=== PATIENT | female | born 1970 | race Caucasian/White ===

== ENCOUNTER 2019-12-27 09:59 | Day surgery (SDC) | payer OTHER ==
[2019-12-24 09:11] VITALS: BMI 25.9
[~2019-12-27 09:59] MED LIST: LACTATED RINGERS 1,000 ML IV SCH
[2019-12-27 10:21] VITALS: TEMP 97.8
[2019-12-27] MEDS ORDERED: LIDOCAINE 1% (10MG/ML) FOR IV START INTRADERMA ONE (10:23)
[2019-12-27] MEDS ORDERED: LACTATED RINGERS 1,000 ML IV ONE (10:23)
[2019-12-27] MEDS ORDERED: PROPOFOL 10 MG/ML 20 ML VIAL IV ONE (11:10)
[2019-12-27] MEDS ORDERED: LIDOCAINE 1% INJ 10MG/ML (20 ML MDV) ONE (11:10)
--- NOTE | 2019-12-27 11:47 | P.PCN ---
Date of Procedure: 12/27/19 Description of Procedure: Brief history: Patient is a pleasant 49-year-old female presenting for EGD and colonoscopy for evaluation of GERD and change in bowel habits. She reports intermittent episodes of reflux treated with [id number] Tums, approximately 3 days per week. She also reports prior cervical fusion which she feels may cause some proximal esophageal dysphagia. Patient reports 2 years of loose watery bowel movements. No prior EGD or colonoscopy. Procedure performed: Esophagogastroduodenoscopy with biopsy Colonoscopy with biopsy Estimated blood loss: Minimal. Preoperative diagnosis: GERD, change in bowel habits, diarrhea, no prior EGD or colonoscopy reported. Anesthesia: MAC Procedure: After informed consent was obtained from the patient was brought into the endoscopy unit and IV sedation was administered by anesthesia under continuous monitoring. Initially upper endoscopy was done. The Olympus GF 190 video endoscope was inserted into the mouth and esophagus intubated without any difficulty and was gradually advanced into the stomach and duodenum and care fully examined. The bulb and second part of the duodenum appeared normal, with biopsies taken to rule out celiac sprue. The scope was then withdrawn into the stomach adequately insufflated with air and upon careful examination the antrum and body, cardia and fundus appeared normal, except for some mild scattered erythema in antrum and body suggestive of mild gastritis with biopsies taken. The scope was then withdrawn into the esophagus. The GE junction was located at 36 cm to the incisors and biopsy. It appeared regular with no erythema erosions or ulcerations. Rest of the esophagus appeared normal. Patient tolerated the procedure well. At this time the patient continued to remain sedation. Initial digital rectal examination was normal. Olympus CF 190 video colonoscope was then inserted into the rectum and gradually advanced to the cecum without any difficulty. Careful examination was performed as the scope was gradually being withdrawn. The prep was poor with a large amount of liquid and solid stool throughout the colon. The cecum, ascending colon, transverse colon, descending colon, sigmoid colon and rectum appeared normal, with complete visualization of the mucosa impaired by poor prep. Random biopsies were taken of the right colon, left colon and a normal-appearing terminal ileum in the setting of altered bowel function and diarrhea.. Retroflexion was performed in the rectum and no lesions were noted. Patient tolerated the procedure well. Impression: 1. Mild gastritis, antrum and body biopsied. Biopsies of the duodenum and GE junction. 2. Poor prep, with a large amount of liquid stool with some solid components throughout the entire colon prohibiting complete visualization of the mucosa. Random biopsies were taken of the terminal ileum which appeared normal, right colon and left colon. Recommendations: Findings of this examination were discussed with the patient. Okay to resume diet. Okay to resume medications. Await pathology from biopsies. Would recommend repeat colonoscopy in 6-12 months for screening purposes given poor prep with a 2 day prep at that time.
[2019-12-27 11:52] VITALS: RESP 16
[2019-12-27 12:13] VITALS: BP 100/64; PULSE 66
== END 2019-12-27 12:29 | disposition home or self-care (01) ==
LOC: ORWHC2ENDO 09:59
PROVIDERS: ATTEND Internal Medicine
DX: K20.0 Eosinophilic esophagitis (principal); K29.50 Unspecified chronic gastritis without bleeding; R19.4 Change in bowel habit; J44.9 Chronic obstructive pulmonary disease, unspecified; Z90.710 Acquired absence of both cervix and uterus; Z90.5 Acquired absence of kidney; Z52.4 Kidney donor; Z98.890 Other specified postprocedural states; Z98.1 Arthrodesis status; I10 Essential (primary) hypertension; Z79.1 Long term (current) use of non-steroidal anti-inflammatories (NSAID); Z79.891 Long term (current) use of opiate analgesic; Z79.899 Other long term (current) drug therapy; Z88.2 Allergy status to sulfonamides
CPT/HCPCS: 88305; 45380; 43239; J2001; J2704

== ENCOUNTER → 2020-05-02 | Outpatient (CLI) | payer OTHER ==
[2020-05-03 02:51] LABS: C Reactive Protein <0.4 mg/dL (0.0-0.8); Rheumatoid Factor, Qnt <4 IU/mL (0-13)
== END | disposition home or self-care (01) ==
LOC: LABWHC1 15:27
PROVIDERS: ATTEND Internal Medicine
DX: M25.50 Pain in unspecified joint (principal)
CPT/HCPCS: 36415; 85652; 86038; 86140; 86431

== ENCOUNTER → 2020-08-31 | Outpatient (CLI) | payer OTHER ==
--- NOTE | 2020-08-31 14:15 | US ---
EXAMINATION TYPE: US thyroid st tissue head/neck DATE OF EXAM: 08/31/2020 COMPARISON: NONE CLINICAL HISTORY: R22.0 Localized swelling, mass and lump, head. Patient c/o midline palpable, and 2 years of difficulty swallowing; smoker.; family history of esophageal cancer. GLAND SIZE: Right Lobe: 4.1 x 1.3 x 1.7 cm Overall Parenchyma: homogenous Left Lobe: 3.5 x 1.1 x 1.3 cm Overall Parenchyma: homogeneous Isthmus Thickness: 0.4 cm NODULES RIGHT: # of nodules measured on right: 0 LEFT: # of nodules measured on left: 1 1. 0.3 X 0.3 x 0.2 cm, mid lateral pole, spongiform, hypoechoic nodule, which is wider than tall, w ith ill-defined margins, without echogenic foci. ISTHMUS: # of nodules measured in the isthmus: 0 Bilateral neck scanned: superior and medial to right thyroid gland a cystic area is noted = 1.2 x 1.0 x 0.7cm. No mass is noted midline mid neck at area of concern. IMPRESSION: 1. Benign-appearing subcentimeter nodule. 2. Cystlike area right upper neck 2017 ACR TI-RADS LEVEL: TR-RADS 2 - Not Suspicious: No FNA *Highest TI-RADS level nodule reported
== END | disposition home or self-care (01) ==
LOC: RADUSWWP 13:16
PROVIDERS: ATTEND Internal Medicine
DX: E04.1 Nontoxic single thyroid nodule (principal); Z80.0 Family history of malignant neoplasm of digestive organs
CPT/HCPCS: 76536

== ENCOUNTER 2022-09-16 12:09 | Emergency (ER) | payer OTHER ==
[2022-09-16] MEDS ORDERED: LIDOCAINE 1% INJ 10MG/ML (30 ML VIAL-PF) SQ ONE (12:35)
--- NOTE | 2022-09-16 12:35 | ED ---
General Adult HPI - General Chief complaint: Dental/Oral Stated complaint: dental pain Time Seen by Provider: 09/16/22 12:23 Source: patient, RN notes reviewed Mode of arrival: ambulatory Limitations: no limitations - History of Present Illness Initial comments: 52-year-old female with no significant past medical history presents to the emergency department with a chief complaint of dental pain. Patient reports worsening dental pain times the last week. She is unsure of the last time she saw a dentist. She denies any fevers, chills, fatigue. She has not taken anything for his symptoms. She denies any recent trauma or injury. - Related Data Home Medications Medication Instructions Recorded Confirmed Acyclovir [Zovirax] 400 mg PO DAILY 12/24/19 12/24/19 Albuterol Sulfate [Ventolin HFA] 1 - 2 puff INHALATION Q6H PRN 12/24/19 12/24/19 HYDROcodone/APAP 5-325MG [[place] 1 tab PO Q6H PRN 12/24/19 12/24/19 5-325] Meloxicam 15 mg PO DAILY 12/24/19 12/24/19 Venlafaxine HCl [Effexor XR] 75 mg PO QAM 12/24/19 12/24/19 amLODIPine [Norvasc] 5 mg PO QAM 12/24/19 12/24/19 tiZANidine HCL 4 mg PO BID PRN 12/24/19 12/24/19 Previous Rx's Medication Instructions Recorded Amoxic-Pot Clav 875-125Mg 1 tab PO Q12HR #20 tab 09/16/22 [Augmentin 875-125] Allergies Allergy/AdvReac Type Severity Reaction Status Date / Time sulfamethoxazole Allergy Rash/Hives Verified 09/16/22 12:17 [From Bactrim] trimethoprim [From Bactrim] Allergy Rash/Hives Verified 09/16/22 12:17 Review of Systems ROS Statement: Those systems with pertinent positive or pertinent negative responses have been documented in the HPI. ROS Other: All systems not noted in ROS Statement are negative. 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 Past Psychological History: No Psychological Hx Reported Smoking Status: Current every day smoker Past Alcohol Use History: None Reported Past Drug Use History: Marijuana - Past Family History Mother Family Medical History: Renal Disease Additional Family Medical History / Comment(s): Bright's Disease-had kidney transplant, at age 55. maternal grandmother-brain tumor Father Family Medical History: COPD Brother(s) Family Medical History: Hypertension Additional Family Medical History / Comment(s): diverticulitis General Exam Limitations: no limitations General appearance: alert, in no apparent distress Head exam: Present: atraumatic, normocephalic, normal inspection Eye exam: Present: normal appearance, PERRL, EOMI. Absent: scleral icterus, conjunctival injection, periorbital swelling ENT exam: Present: normal exam, mucous membranes moist Expanded Mouth exam: Present: normal external inspection, tongue normal. Absent: drooling, muffled voice Teeth exam: Present: dental caries, fractured tooth # (Significant deacy and dental caries to tooth 31, with abscess to the medial side of the tooth) Neck exam: Present: normal inspection. Absent: tenderness, meningismus, lymphadenopathy Respiratory exam: Present: normal lung sounds bilaterally. Absent: respiratory distress, wheezes, rales, rhonchi, stridor Cardiovascular Exam: Present: regular rate, normal rhythm, normal heart sounds. Absent: systolic murmur, diastolic murmur, rubs, gallop, clicks GI/Abdominal exam: Present: soft, normal bowel sounds. Absent: distended, tenderness, guarding, rebound, rigid Extremities exam: Present: normal inspection, full ROM, normal capillary refill. Absent: tenderness, pedal edema, joint swelling, calf tenderness Back exam: Present: normal inspection Neurological exam: Present: alert, oriented X3, CN II-XII intact Psychiatric exam: Present: normal affect, normal mood Skin exam: Present: warm, dry, intact, normal color. Absent: rash Course Vital Signs 09/16/22 09/16/22 12:15 14:17 Temperature 97.9 F 97.3 F L Pulse Rate 59 L 78 Respiratory 20 16 Rate Blood Pressure 144/89 O2 Sat by Pulse 99 94 L Oximetry Procedures - Incision & Drainage Consent Obtained: verbal consent Site: oral Size (cm): 1 Anesthetic Used: lidocaine 1% Scalpel Used: #11 Needle Aspiration Performed?: Yes Irrigation Performed?: Yes I&D Drainage Obtained: Pus, Blood Culture Obtained?: No Complications: pain, bleeding, nerve injury, allergic reaction Patient Tolerated Procedure: well, no complications Medical Decision Making - Medical Decision Making Was pt. sent in by a medical professional or institution (, PA, SILVERWARE WASHER, urgent care, hospital, or alf...) When possible be specific @ -[No] Did you speak to anyone other than the patient for history (EMS, parent, family, police, friend...)? What history was obtained from this source @ -[No] Did you review nursing and triage notes (agree or disagree)? Why? @ -[I reviewed and agree with nursing and triage notes] Were old charts reviewed (outside hosp., previous admission, EMS record, old EKG, old radiological studies, urgent care reports/EKG's, alf records)? Report findings @ -[No old charts were reviewed] Differential Diagnosis (chest pain, altered mental status, abdominal pain women, abdominal pain men, vaginal bleeding, weakness, fever, dyspnea, syncope, headache, dizziness, GI bleed, back pain, seizure, CVA, palpatations, mental health, musculoskeletal)? @ -[not applicable] EKG interpreted by me (3pts min.). @ -[As above] X-rays interpreted by me (1pt min.). @ -[None done] CT interpreted by me (1pt min.). @ -[None done] U/S interpreted by me (1pt. min.). @ -[None done] What testing was considered but not performed or refused? (CT, X-rays, U/S, labs)? Why? @ -[None] What meds were considered but not given or refused? Why? @ -[None] Did you discuss the management of the patient with other professionals (professionals i.e. Dr., PA, SILVERWARE WASHER, lab, RT, psych nurse, social work job titles, business law professor, teacher, community chest officer, heel caser)? Give summary @ -[No] Was smoking cessation discussed for >3mins.? @ -[No] Was critical care preformed (if so, how long)? @ -[No] Were there social determinants of health that impacted care today? How? (Homelessness, low income, unemployed, alcoholism, drug addiction, transportation, low edu. Level, literacy, decrease access to med. care, intermediate, rehab)? @ -[No] Was there de-escalation of care discussed even if they declined (Discuss DNR or withdrawal of care, Hospice)? DNR status @ -[No] What co-morbidities impacted this encounter? (DM, HTN, Smoking, COPD, CAD, Cancer, CVA, ARF, Chemo, Hep., AIDS, mental health diagnosis, sleep apnea, morbid obesity)? @ -[None] Was patient admitted / discharged? Hospital course, mention meds given and route, prescriptions, significant lab abnormalities, going to OR and other pertinent info. @ -Discharged. This is a 52-year-old female who presents the emergency department dental pain. Patient had history and physical exam performed on the ED heart rate regular rate and, lungs clear to auscultation bilaterally abdomen is soft and nontender. There is a dental abscess to tooth 31. Patient had an incision and drainage procedure for which she tolerated well. She was given Augmentin. She was instructed to follow up with her dentist within 1-2 days. Return precautions were discussed. Patient discharged in stable condition. Case discussed with Dr. Oh, who agrees with plan of care Undiagnosed new problem with uncertain prognosis? @ -[No] Drug Therapy requiring intensive monitoring for toxicity (Heparin, Nitro, Insulin, Cardizem)? @ -[No] Were any procedures done? @ -[No] Diagnosis/symptom? @ -dental abscess Acute, or Chronic, or Acute on Chronic? @ -acute Uncomplicated (without systemic symptoms) or Complicated (systemic symptoms)? @ -uncomplicated Side effects of treatment? @ -[No] Exacerbation, Progression, or Severe Exacerbation? @ -[No] Poses a threat to life or bodily function? How? (Chest pain, [place], [place], pneumonia, PE, COPD, DKA, ARF, appy, cholecystitis, CVA, Diverticulitis, Homicidal, Suicidal, threat to staff... and all critical care pts) @ -low likelihood Disposition Clinical Impression: Dental abscess, Dental caries Disposition: HOME SELF-CARE Condition: Stable Instructions (If sedation given, give patient instructions): Dental Abscess (ED), Toothache (ED) Additional Instructions: Follow-up with your dentist as soon as possible Please return to the nearest emergency department if fever, chills, worsening abscess develops Prescriptions: Amoxic-Pot Clav 875-125Mg [Augmentin 875-125] 1 tab PO Q12HR #20 tab Is patient prescribed a controlled substance at d/c from ED?: No Referrals: Cinthia Baum DO [Primary Care Provider] - 1-2 days Time of Disposition: 13:09
[2022-09-16] MEDS ORDERED: AMOXIC-POT CLAV 875-125MG 1 EACH TAB PO STA (13:06)
[2022-09-16] MEDS ORDERED: ONDANSETRON 4 MG ODT STARTER PACK 2 TAB BTL PO STA (13:08)
[2022-09-16 14:18] VITALS: BP 144/89; PULSE 78; RESP 16; TEMP 97.3
== END 2022-09-16 14:18 | disposition home or self-care (01) ==
LOC: EC 12:09
DX: K04.7 Periapical abscess without sinus (principal); K02.9 Dental caries, unspecified; J44.9 Chronic obstructive pulmonary disease, unspecified; I10 Essential (primary) hypertension; M19.90 Unspecified osteoarthritis, unspecified site; F17.200 Nicotine dependence, unspecified, uncomplicated; F12.90 Cannabis use, unspecified, uncomplicated; Z88.2 Allergy status to sulfonamides; Z88.8 Allergy status to other drugs, medicaments and biological substances; Z79.899 Other long term (current) drug therapy
CPT/HCPCS: 99282; 41800; J2001; S0119

== ENCOUNTER 2022-09-18 08:29 | Emergency (ER) | payer OTHER ==
[2022-09-18 08:37] VITALS: BP 133/65; PULSE 62; RESP 18; TEMP 99.1
[2022-09-18] MEDS ORDERED: HYDROmorphone 1 MG/ML 1 ML SYRINGE IM STA (08:42)
[2022-09-18] MEDS ORDERED: PENICILLIN G BENZATHINE 1,200,000 UNIT/2 ML SYRINGE IM STA (08:42)
[2022-09-18] MEDS ORDERED: ACET/COD 300 MG/30 MG STARTER PACK 6 TAB BTL PO STA (08:48)
--- NOTE | 2022-09-18 08:49 | ED ---
General Adult HPI - General Chief complaint: Dental/Oral Stated complaint: dental pain, facial swelling Time Seen by Provider: 09/18/22 08:30 Source: patient, EMS, RN notes reviewed Mode of arrival: EMS Limitations: no limitations - History of Present Illness Initial comments: Patient is a pleasant 52-year-old female presenting to the emergency department dental pain. Onset of symptoms was several days ago. Patient did have a dental extraction done just several days ago. Patient developed pain and swelling and was seen emergency department 2 days ago. Patient was started on antibiotics, less than 48 hours ago. Patient has been taking these. Patient is having some increased pain and swelling or no fever. Patient has had some chills. - Related Data Home Medications Medication Instructions Recorded Confirmed Acyclovir [Zovirax] 400 mg PO DAILY 12/24/19 12/24/19 Albuterol Sulfate [Ventolin HFA] 1 - 2 puff INHALATION Q6H PRN 12/24/19 12/24/19 HYDROcodone/APAP 5-325MG [[place] 1 tab PO Q6H PRN 12/24/19 12/24/19 5-325] Meloxicam 15 mg PO DAILY 12/24/19 12/24/19 Venlafaxine HCl [Effexor XR] 75 mg PO QAM 12/24/19 12/24/19 amLODIPine [Norvasc] 5 mg PO QAM 12/24/19 12/24/19 tiZANidine HCL 4 mg PO BID PRN 12/24/19 12/24/19 Previous Rx's Medication Instructions Recorded Amoxic-Pot Clav 875-125Mg 1 tab PO Q12HR #20 tab 09/16/22 [Augmentin 875-125] Allergies Allergy/AdvReac Type Severity Reaction Status Date / Time sulfamethoxazole Allergy Rash/Hives Verified 09/18/22 08:37 [From Bactrim] trimethoprim [From Bactrim] Allergy Rash/Hives Verified 09/18/22 08:37 Review of Systems ROS Statement: Those systems with pertinent positive or pertinent negative responses have been documented in the HPI. ROS Other: All systems not noted in ROS Statement are negative. 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 Past Psychological History: No Psychological Hx Reported Smoking Status: Current every day smoker Past Alcohol Use History: None Reported Past Drug Use History: Marijuana - Past Family History Mother Family Medical History: Renal Disease Additional Family Medical History / Comment(s): Bright's Disease-had kidney transplant, at age 55. maternal grandmother-brain tumor Father Family Medical History: COPD Brother(s) Family Medical History: Hypertension Additional Family Medical History / Comment(s): diverticulitis General Exam Limitations: no limitations General appearance: alert, in no apparent distress Head exam: Present: normocephalic Eye exam: Present: normal appearance ENT exam: Present: other (Right mandibular swelling, moderate. Soft. No definitive abscess. Oral cavity without definitive abscess. There is evidence of recent dental extraction right lower premolar without visualized abscess) Neck exam: Present: normal inspection Respiratory exam: Present: normal lung sounds bilaterally. Absent: respiratory distress Cardiovascular Exam: Present: regular rate, normal rhythm GI/Abdominal exam: Present: soft. Absent: tenderness Extremities exam: Present: normal inspection Neurological exam: Present: alert Psychiatric exam: Present: normal affect, normal mood Skin exam: Present: normal color Course Vital Signs 09/18/22 08:30 Temperature 99.1 F Pulse Rate 62 Respiratory 18 Rate Blood Pressure 133/65 O2 Sat by Pulse 97 Oximetry Medical Decision Making - Medical Decision Making Was pt. sent in by a medical professional or institution (KATHLEEN Rice, MACHINE DESIGN ENGINEER, urgent care, hospital, or [place] health care facility...) When possible be specific @ -No Did you speak to anyone other than the patient for history (EMS, parent, family, police, friend...)? What history was obtained from this source @ -No Did you review nursing and triage notes (agree or disagree)? Why? @ -I reviewed and agree with nursing and triage notes Were old charts reviewed (outside hosp., previous admission, EMS record, old EKG, old radiological studies, urgent care reports/EKG's, [place] health [facility] facility records)? Report findings @ -No old charts were reviewed Differential Diagnosis (chest pain, altered mental status, abdominal pain women, abdominal pain men, vaginal bleeding, weakness, fever, dyspnea, syncope, headache, dizziness, GI bleed, back pain, seizure, CVA, palpatations, mental health)? @ -not applicable EKG interpreted by me (3pts min.). @ -As above X-rays interpreted by me (1pt min.). @ -None done CT interpreted by me (1pt min.). @ -None done U/S interpreted by me (1pt. min.). @ -None done What testing was considered but not performed or refused? (CT, X-rays, U/S, labs)? Why? @ -Considered imaging however area is soft without clinical concern for abscess. No there is swelling, likely phlegmon. No visualized abscess in the mouth either. Nothing is able to be drained at this time. What meds were considered but not given or refused? Why? @ -None Did you discuss the management of the patient with other professionals (professionals i.e. KATHLEEN Rice, MACHINE DESIGN ENGINEER, lab, RT, psych nurse, social work faculty member, clinical admissions manager, teacher, chairman president and chief executive officer, rehabilitation caseworker)? Give summary @ -No Was smoking cessation discussed for >3mins.? @ -No Was critical care preformed (if so, how long)? @ -No Were there social determinants of health that impacted care today? How? (Homelessness, low income, unemployed, alcoholism, drug addiction, transportation, low edu. Level, literacy, decrease access to med. care, shelter, rehab)? @ -No Was there de-escalation of care discussed even if they declined (Discuss DNR or withdrawal of care, Hospice)? DNR status @ -No What co-morbidities impacted this encounter? (DM, HTN, Smoking, COPD, CAD, Cancer, CVA, ARF, Chemo, Hep., AIDS, mental health diagnosis, sleep apnea, morbid obesity)? @ -None Was patient admitted / discharged? Hospital course, mention meds given and route, prescriptions, significant lab abnormalities, going to OR and other pertinent info. @ -Patient has had less than 48 hours of antibiotics. Patient will receive IM antibiotics and pain control and recommended close follow-up. Patient is recommended follow-up with her dentist and primary care physician within 24 hours and to return if symptoms worsen Undiagnosed new problem with uncertain prognosis? @ -No Drug Therapy requiring intensive monitoring for toxicity (Heparin, Nitro, Insulin, Cardizem)? @ -No Were any procedures done? @ -No Diagnosis/symptom? @ -Dental infection Acute, or Chronic, or Acute on Chronic? @ -Acute Uncomplicated (without systemic symptoms) or Complicated (systemic symptoms)? @ -default Side effects of treatment? @ -No Exacerbation, Progression, or Severe Exacerbation? @ -No Poses a threat to life or bodily function? How? (Chest pain, [place], [place], pneumonia, PE, COPD, DKA, ARF, appy, cholecystitis, CVA, Diverticulitis, Homicidal, Suicidal, threat to staff... and all critical care pts) @ -No Disposition Clinical Impression: Dental infection Disposition: HOME SELF-CARE Condition: Stable Instructions (If sedation given, give patient instructions): Dental Abscess (ED), Toothache (ED) Additional Instructions: Please continue antibiotics. Please do follow-up with your dentist and primary care physician within the next 24 hours. Return for fevers, increased pain, increased swelling, redness, worsening or changing symptoms or any other concerns. If symptoms worsen you may need IV antibiotics and admission. Is patient prescribed a controlled substance at d/c from ED?: No Referrals: Cinthia Baum DO [Primary Care Provider] - 1-2 days Time of Disposition: 08:48
== END 2022-09-18 09:55 | disposition home or self-care (01) ==
LOC: EC 08:29
DX: K04.7 Periapical abscess without sinus (principal); J44.9 Chronic obstructive pulmonary disease, unspecified; I10 Essential (primary) hypertension; M19.90 Unspecified osteoarthritis, unspecified site; F17.200 Nicotine dependence, unspecified, uncomplicated; F12.90 Cannabis use, unspecified, uncomplicated; Z79.899 Other long term (current) drug therapy; Z79.1 Long term (current) use of non-steroidal anti-inflammatories (NSAID); Z88.2 Allergy status to sulfonamides
CPT/HCPCS: 99284; 96372 ×2; J0561; J1170

== ENCOUNTER 2023-12-31 15:30 | Observation (INO) | payer OTHER ==
--- NOTE | 2023-12-31 16:06 | ED ---
Chest Pain HPI - General Chief Complaint: Chest Pain Stated Complaint: chest pain Time Seen by Provider: 12/31/23 15:38 Source: patient, EMS Mode of arrival: EMS - History of Present Illness Initial Comments: 53-year-old female with past medical history of asthma, COPD who presents emergency department reporting chest pain. Patient was at a [facility] appointment when she began having chest pain. She states that she has had intermittent episodes of chest pain for the past year but has not been evaluated for it. She describes it as a sharp shooting pain which starts in her left chest and radiates to her left shoulder. She describes it as a pressure sensation. Admits to shortness of breath. Admits to pain with palpation. Patient was sent to the hospital from [facility] facility. She admits to previous [place]. She follows with cardiology. Denies stents. No other alleviating, precipitating or modifying factors - Related Data Home Medications Medication Instructions Recorded Confirmed Albuterol Sulfate [Ventolin HFA] 2 puff INHALATION RT-Q4H PRN 12/24/19 12/31/23 Venlafaxine HCl [Effexor XR] 150 mg PO DAILY 12/24/19 12/31/23 amLODIPine [Norvasc] 5 mg PO DAILY 12/24/19 12/31/23 Butalb/Acetaminophen/Caffeine 1 tab PO BID PRN 12/31/23 12/31/23 [Esgic 50-325-40 mg Tablet] Ergocalciferol (Vitamin D2) 1,250 mcg PO SA 12/31/23 12/31/23 [Drisdol (50,000 Iu)] Fluticasone/Umeclidin/Vilanter 1 puff INHALATION RT-DAILY 12/31/23 12/31/23 [Trelegy Ellipta 100-62.5-25] Gabapentin [Neurontin] 100 mg PO BID 12/31/23 12/31/23 Ziprasidone [Geodon] 20 mg PO BID 12/31/23 12/31/23 hydrOXYzine HCL [Atarax] 50 - 100 mg PO HS PRN 12/31/23 12/31/23 oxyCODONE-APAP 7.5-325MG [Percocet 1 tab PO BID PRN 12/31/23 12/31/23 7.5-325 mg] traZODone HCL [Desyrel] 100 mg PO HS 12/31/23 12/31/23 Previous Rx's Medication Instructions Recorded Acetaminophen Tab [Tylenol] 650 mg PO Q6HR PRN tab 01/02/24 Metoprolol Succinate [Metoprolol 25 mg PO DAILY #90 tab 01/02/24 Succinate ER] Allergies Allergy/AdvReac Type Severity Reaction Status Date / Time sulfamethoxazole Allergy Diarrhea, Verified 12/31/23 16:21 [From Bactrim] rash/hives trimethoprim [From Bactrim] Allergy Diarrhea, Verified 12/31/23 16:21 rash/hives Review of Systems ROS Statement: Those systems with pertinent positive or pertinent negative responses have been documented in the HPI. ROS Other: All systems not noted in ROS Statement are negative. 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 Past Psychological History: No Psychological Hx Reported Smoking Status: Current every day smoker Past Alcohol Use History: None Reported Past Drug Use History: Marijuana - Past Family History Mother Family Medical History: Renal Disease Additional Family Medical History / Comment(s): Bright's Disease-had kidney transplant, at age 55. maternal grandmother-brain tumor Father Family Medical History: COPD Brother(s) Family Medical History: Hypertension Additional Family Medical History / Comment(s): diverticulitis General Exam General appearance: alert, in no apparent distress Head exam: Present: atraumatic, normocephalic, normal inspection Eye exam: Present: normal appearance, PERRL, EOMI. Absent: scleral icterus, conjunctival injection, periorbital swelling ENT exam: Present: normal exam, mucous membranes moist Neck exam: Present: normal inspection. Absent: tenderness, meningismus, lymphadenopathy Respiratory exam: Present: normal lung sounds bilaterally, chest wall tenderness (To palpation of the left chest wall). Absent: respiratory distress, wheezes, rales, rhonchi, stridor Cardiovascular Exam: Present: regular rate, normal rhythm, normal heart sounds. Absent: systolic murmur, diastolic murmur, rubs, gallop, clicks GI/Abdominal exam: Present: soft, normal bowel sounds. Absent: distended, tenderness, guarding, rebound, rigid Extremities exam: Present: normal inspection, full ROM, normal capillary refill. Absent: tenderness, pedal edema, joint swelling, calf tenderness Back exam: Present: normal inspection Neurological exam: Present: alert, oriented X3, CN II-XII intact Psychiatric exam: Present: normal affect, normal mood Skin exam: Present: warm, dry, intact, normal color. Absent: rash Course Vital Signs 12/31/23 12/31/23 12/31/23 15:38 19:30 21:03 Temperature 98.2 F Pulse Rate 62 62 75 Respiratory 20 16 18 Rate Blood Pressure 133/92 129/77 112/79 O2 Sat by Pulse 96 96 97 Oximetry 12/31/23 12/31/23 01/01/24 22:00 23:00 00:00 Temperature Pulse Rate 63 60 59 L Respiratory 16 16 17 Rate Blood Pressure 120/86 112/81 119/80 O2 Sat by Pulse 95 95 95 Oximetry 01/01/24 01/01/24 01/01/24 01:00 02:00 04:00 Temperature Pulse Rate 58 L 68 61 Respiratory 18 17 18 Rate Blood Pressure 118/75 105/72 114/80 O2 Sat by Pulse 95 95 95 Oximetry 01/01/24 06:00 Temperature Pulse Rate 58 L Respiratory 16 Rate Blood Pressure 124/83 O2 Sat by Pulse 95 Oximetry Chest Pain MDM - MDM Was pt. sent in by a medical professional or institution (, PA, RENAL NURSE, urgent care, hospital, or long-term...) When possible be specific @ -Patient sent in from [facility] Did you speak to anyone other than the patient for history (EMS, parent, family, police, friend...)? What history was obtained from this source @ -Spoke with EMS for history Did you review nursing and triage notes (agree or disagree)? Why? @ -I reviewed and agree with nursing and triage notes Were old charts reviewed (outside hosp., previous admission, EMS record, old EKG, old radiological studies, urgent care reports/EKG's, long-term records)? Report findings @ -No old charts were reviewed Differential Diagnosis (chest pain, altered mental status, abdominal pain women, abdominal pain men, vaginal bleeding, weakness, fever, dyspnea, syncope, headache, dizziness, GI bleed, back pain, seizure, CVA, palpatations, mental health, musculoskeletal)? @ -Differential Chest Pain: Stable Angina, Unstable Angina, STEMI, NSTEMI Aortic Dissection, Pneumothorax, Musculoskeletal, Esophageal Spasm GERD, Cholecystitis, Pancreatitis, Zoster, this is not meant to be an all-inclusive list. EKG interpreted by me (3pts min.). @ - First EKG completed at 1553 demonstrates sinus bradycardia with a rate of 53. KS interval 121. QRS 114. QTc of 402. Intraventricular conduction delay with Q waves in V1V2. Biphasic T wave in V1 Second EKG at 1557 continues to demonstrate sinus bradycardia with a rate of 58. KS interval 123. QRS 98. QTc of 405. Intraventricular conduction delay. X-rays interpreted by me (1pt min.). @ -Yes and demonstrates no acute process CT interpreted by me (1pt min.). @ -None done U/S interpreted by me (1pt. min.). @ -None done What testing was considered but not performed or refused? (CT, X-rays, U/S, labs)? Why? @ -None What meds were considered but not given or refused? Why? @ -None Did you discuss the management of the patient with other professionals (professionals i.e. , PA, RENAL NURSE, lab, RT, psych nurse, social security assessor, drywall finisher foreman, teacher, business practices officer, case checker)? Give summary @ -Spoke with Dr. Dukes to discuss patient's EKG. Also spoke with Dr. Yousif who accepted admission Was smoking cessation discussed for >3mins.? @ -No Was critical care preformed (if so, how long)? @ -No Were there social determinants of health that impacted care today? How? (Homelessness, low income, unemployed, alcoholism, drug addiction, transportation, low edu. Level, literacy, decrease access to med. care, half-way, rehab)? @ -No Was there de-escalation of care discussed even if they declined (Discuss DNR or withdrawal of care, Hospice)? DNR status @ -No What co-morbidities impacted this encounter? (DM, HTN, Smoking, COPD, CAD, Cancer, CVA, ARF, Chemo, Hep., AIDS, mental health diagnosis, sleep apnea, morbid obesity)? @ -COPD, hypertension Was patient admitted / discharged? Hospital course, mention meds given and route, prescriptions, significant lab abnormalities, going to OR and other pertinent info. @ -Upon arrival patient seen and evaluated in room 18. Thorough history and physical exam was performed. Twelve-lead EKG is completed which does demonstrate some concerning findings. IV access is established. Laboratory studies are conducted. I did discuss the patient's care with Dr. Dukes. Upon return the results they are discussed the patient. I do feel that she should be admitted for formal cardiology consultation. Patient was agreeable to this. Spoke with Dr. Yousif who will admit patient Undiagnosed new problem with uncertain prognosis? @ -Yes Drug Therapy requiring intensive monitoring for toxicity (Heparin, Nitro, I nsulin, Cardizem)? @ -No Were any procedures done? @ -No Diagnosis/symptom? @ -Acute chest pain, abnormal EKG Acute, or Chronic, or Acute on Chronic? @ -Acute Uncomplicated (without systemic symptoms) or Complicated (systemic symptoms)? @ -Complicated Side effects of treatment? @ -No Exacerbation, Progression, or Severe Exacerbation? @ -No Poses a threat to life or bodily function? How? (Chest pain, [place], [place], pneumonia, PE, COPD, DKA, ARF, appy, cholecystitis, CVA, Diverticulitis, Homicidal, Suicidal, threat to staff... and all critical care pts) @ -Yes as patient does have chest pain in the setting of an abnormal EKG Disposition Clinical Impression: Chest pain, Abnormal EKG Disposition: ADMITTED IP TO THIS [facility] Condition: Stable Is patient prescribed a controlled substance at d/c from ED?: No Time of Disposition: 18:39 Decision to Admit Reason: Admit from EC Decision Date: 12/31/23 Decision Time: 18:39
[2023-12-31 16:52] LABS: Basophils % (A) 1 %; Eosinophils # (A) 0.2 k/uL (0-0.7); Eosinophils % (A) 2 %; HCT 45.3 % (34.0-46.0); Lymphocytes # (A) 2.9 k/uL (1.0-4.8); Lymphocytes % (A) 37 %; MCH 29.9 pg (25.0-35.0); MCHC 33.1 g/dL (31.0-37.0); MCV 90.6 fL (80.0-100.0); Mean Platelet Volume 7.5; Monocytes # (A) 0.5 k/uL (0-1.0); Monocytes % (A) 6 %; Neutrophils # (A) 4.1 k/uL (1.3-7.7); Neutrophils % (A) 52 %; Platelet Count 306 k/uL (150-450); RDW 13.5 % (11.5-15.5); WBC 7.9 k/uL (3.8-10.6)
--- NOTE | 2023-12-31 17:01 | XR ---
EXAMINATION TYPE: XR chest 2V DATE OF EXAM: 12/31/2023 4:56 PM CLINICAL INDICATION:Female, 53 years old with history of Chest Pain; [facility] COMPARISON: None TECHNIQUE: XR chest 2V Frontal view of the chest. FINDINGS: Lungs/Pleura: There is no evidence of pleural effusion, focal consolidation, or pneumothorax. Pulmonary vascularity: Unremarkable. Heart/mediastinum: Cardiomediastinal silhouette is unremarkable. Musculoskeletal: No acute osseous pathology. IMPRESSION: No acute cardiopulmonary disease/process.
[2023-12-31 17:02] LABS: Partial Thromboplastin Time 27.1 sec (22.0-30.0); Prothrombin Time 10.7 sec (10.0-12.5)
[2023-12-31 17:11] LABS: ALT 16 U/L (4-34); AST 29 U/L (14-36); African American GFR (CKD) 65 (>60 ml/min/1.73 sqM); Albumin 4.7 g/dL (3.5-5.0); Alkaline Phosphatase 78 U/L (38-126); Anion Gap 7 mmol/L; Blood Urea Nitrogen 13 mg/dL (7-17); Calcium 10.2 mg/dL (8.4-10.2); Carbon Dioxide 26 mmol/L (22-30); Chloride 106 mmol/L (98-107); Glucose 84 mg/dL (74-99); Lipase 120 U/L (23-300); Magnesium 1.9 mg/dL (1.6-2.3); Non-African American GFR(CKD) 57 (>60 ml/min/1.73 sqM); Potassium 4.5 mmol/L (3.5-5.1); Sodium 139 mmol/L (137-145); Total Bilirubin 0.6 mg/dL (0.2-1.3); Total Protein 7.7 g/dL (6.3-8.2)
[2023-12-31] MEDS ORDERED: NALOXONE 0.4 MG/ML 1 ML VIAL IV PRN (18:39)
[2023-12-31] MEDS: ASPIRIN 81 MG PO STA (18:56)
[2023-12-31] MEDS ORDERED: BUTALB/APAP/CAFF 50-325-40MG TAB PO PRN (20:09)
[2023-12-31] MEDS ORDERED: ALBUTEROL NEBULIZED 2.5 MG/3 ML INHALATION PRN (20:09)
[2023-12-31] MEDS ORDERED: hydrOXYzine HCL 25 MG TAB PO PRN (20:09)
[2023-12-31] MEDS: ZIPRASIDONE 20 MG CAP PO SCH (21:04)
[2023-12-31] MEDS: GABAPENTIN 100 MG CAP PO SCH (21:04)
[2023-12-31] MEDS: oxyCODONE-APAP 7.5-325MG 1 EACH TAB PO PRN (21:04)
[2023-12-31] MEDS: ENOXAPARIN 40 MG/0.4 ML SYRINGE SQ SCH (23:05)
[2024-01-01] MEDS: traZODone HCL 100 MG TAB PO SCH (00:05)
[2024-01-01] MEDS: amLODIPine 5 MG TAB PO SCH (09:20)
[2024-01-01] MEDS: SYMBICORT 80-4.5 MCG INHALER INHALATION SCH (09:38)
[2024-01-01] MEDS: IPRATROPIUM 0.5 MG/2.5 ML NEBU INHALATION SCH (09:39)
[2024-01-01] MEDS: IV FLUID CONTINUATION 450 ML IV ONE (09:52)
[2024-01-01 10:43] LABS: Basophils # (A) 0.07 X 10*3/uL (0.00-0.10); Basophils % (A) 1.3 %; Eosinophils # (A) 0.16 X 10*3/uL (0.04-0.35); HCT 44.8 % (37.2-46.3); HGB 14.7 g/dL (12.0-15.0); Lymphocytes % (A) 51.4 %; MCH 29.9 pg (27.0-32.0); MCHC 32.8 g/dL (32.0-37.0); MCV 91.1 FL (80.0-97.0); Mean Platelet Volume 10.5 FL (9.5-12.2); Monocytes # (A) 0.38 X 10*3/uL (0.20-1.00); Monocytes % (A) 7.2 %; NRBC Per 100 WBC 0 X 10*3/uL (0.00-0.01); Neutrophils # (A) 1.93 X 10*3/uL (1.80-7.70); Neutrophils % (A) 36.9 %; Platelet Count 270 X 10*3/uL (140-440); RBC 4.92 X 10*6/uL (4.10-5.20); RDW 13.6 % (11.5-14.5); WBC 5.25 X 10*3/uL (4.50-10.00)
[2024-01-01] MEDS: VENLAFAXINE HCL ER 150 MG CAP PO SCH (11:02)
--- NOTE | 2024-01-01 11:54 | P.CRDCN ---
History of Present Illness History of present illness: This is Dr. Anne dictating a consult on this patient The patient was interviewed and examined IMPRESSION / ASSESSMENT: Recurrent palpitations associate with dizziness and sometimes nausea and a feeling of presyncope, recurrent episodes several times a week for the last 1 year QRS fractionation lead V1 Short ID interval of less than 120 ms without clear-cut delta waves No evidence for acute myocardial infarction and her history is not consistent with an acute coronary syndrome story, recurrent episodes PLAN: 2D echo and Doppler study to assess LV wall motion abnormality especially in the septum and the right ventricle. QRS fractionation noted in lead V1 Tilt table test today If normal tilt then a 30-day event monitor and follow-up with Dr. Field At home she may switch amlodipine 5 mg to the evening to see if her symptoms track this change in timing of amlodipine Consideration for an EP study to evaluate the cause of the short ID interval Possibilities include usual and unusual accessory pathway connections such as an atrio-hisian pathway or a very rapidly conducting AV node HPI For the last 1 year the patient has been experiencing the following symptoms several times a week. She gets them when she stands up or she rolls to her side while in bed and then stands up. She feels amlodipine may be contributing to this although then she states that after 30 minutes or so of taking amlodipine it gets better. The role of amlodipine at this time is unclear to me She describes numbness and tingling and a shooting sensation that starts in the head goes down to the head of the neck and to the left arm up to the mid forearm, not to the hands at the same time she also experiences rapid heartbeat and squeezing and tightening in the chest as a result of it and dizziness. Sometimes she has nausea. Occasionally she has had a sensation that she needs to sit down because she is not feeling good She has been experiencing several episodes a week ROS: No fever chills or rigors, no cough, phlegm or expectoration, no nausea, vomiting or diarrhea, no hematuria, dysuria, no musculoskeletal complaints, no strokes or seizures, no skin lesions. 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 Past Psychological History: No Psychological Hx Reported Smoking Status: Current every day smoker Past Alcohol Use History: None Reported Past Drug Use History: Marijuana - Past Family History Mother Family Medical History: Renal Disease Additional Family Medical History / Comment(s): Bright's Disease-had kidney transplant, at age 55. maternal grandmother-brain tumor Father Family Medical History: COPD Brother(s) Family Medical History: Hypertension Additional Family Medical History / Comment(s): diverticulitis Medications and Allergies Home Medications Medication Instructions Recorded Confirmed Type Albuterol Sulfate [Ventolin HFA] 2 puff INHALATION RT-Q4H PRN 12/24/19 12/31/23 History Venlafaxine HCl [Effexor XR] 150 mg PO DAILY 12/24/19 12/31/23 History amLODIPine [Norvasc] 5 mg PO DAILY 12/24/19 12/31/23 History Butalb/Acetaminophen/Caffeine 1 tab PO BID PRN 12/31/23 12/31/23 History [Esgic 50-325-40 mg Tablet] Ergocalciferol (Vitamin D2) 1,250 mcg PO SA 12/31/23 12/31/23 History [Drisdol (50,000 Iu)] Fluticasone/Umeclidin/Vilanter 1 puff INHALATION RT-DAILY 12/31/23 12/31/23 History [Trelegy Ellipta 100-62.5-25] Gabapentin [Neurontin] 100 mg PO BID 12/31/23 12/31/23 History Ziprasidone [Geodon] 20 mg PO BID 12/31/23 12/31/23 History hydrOXYzine HCL [Atarax] 50 - 100 mg PO HS PRN 12/31/23 12/31/23 History oxyCODONE-APAP 7.5-325MG [Percocet 1 tab PO BID PRN 12/31/23 12/31/23 History 7.5-325 mg] traZODone HCL [Desyrel] 100 mg PO HS 12/31/23 12/31/23 History Allergies Allergy/AdvReac Type Severity Reaction Status Date / Time sulfamethoxazole Allergy Diarrhea, Verified 12/31/23 16:21 [From Bactrim] rash/hives trimethoprim [From Bactrim] Allergy Diarrhea, Verified 12/31/23 16:21 rash/hives Physical Exam Vitals: Vital Signs Temp Pulse Pulse Resp BP BP Pulse Ox 01/01/24 07:35 98.5 F 70 15 118/71 96 01/01/24 07:18 98.3 F 87 18 118/80 95 01/01/24 06:00 58 L 16 124/83 95 01/01/24 04:00 61 18 114/80 95 01/01/24 02:00 68 17 105/72 95 01/01/24 01:00 58 L 18 118/75 95 01/01/24 00:00 59 L 17 119/80 95 12/31/23 23:00 60 16 112/81 95 12/31/23 22:00 63 16 120/86 95 12/31/23 21:03 75 18 112/79 97 12/31/23 19:30 62 16 129/77 96 12/31/23 15:38 98.2 F 62 20 133/92 96 Intake and Output 12/31/23 01/01/24 01/01/24 22:59 06:59 14:59 Other: Weight 65.771 kg Results 01/01/24 07:07 12/31/23 16:18 Cardiac Enzymes 12/31/23 12/31/23 12/31/23 Range/Units 16:18 16:18 18:53 AST 29 (14-36) U/L Troponin I <0.012 <0.012 (0.000-0.034) ng/mL 01/01/24 Range/Units 00:22 AST (14-36) U/L Troponin I <0.012 (0.000-0.034) ng/mL Coagulation 12/31/23 Range/Units 16:18 PT 10.7 (10.0-12.5) sec APTT 27.1 (22.0-30.0) sec CBC 12/31/23 Range/Units 16:18 WBC 7.9 (3.8-10.6) k/uL RBC 5.00 (3.80-5.40) m/uL Hgb 15.0 (11.4-16.0) gm/dL Hct 45.3 (34.0-46.0) % Plt Count 306 (150-450) k/uL Comprehensive Metabolic Panel 12/31/23 Range/Units 16:18 Sodium 139 (137-145) mmol/L Potassium 4.5 (3.5-5.1) mmol/L Chloride 106 (98-107) mmol/L Carbon Dioxide 26 (22-30) mmol/L BUN 13 (7-17) mg/dL Creatinine 1.11 H (0.52-1.04) mg/dL Glucose 84 (74-99) mg/dL Calcium 10.2 (8.4-10.2) mg/dL AST 29 (14-36) U/L ALT 16 (4-34) U/L Alkaline Phosphatase 78 (38-126) U/L Total Protein 7.7 (6.3-8.2) g/dL Albumin 4.7 (3.5-5.0) g/dL Current Medications Generic Name Dose Route Start Last Admin Trade Name Freq PRN Reason Stop Dose Admin Acetaminophen/Butalbital/Caffeine 1 each 12/31/23 20:09 Butalb/Apap/Caff 50-325-40mg Tab PO BID PRN Migraine Headache Albuterol Sulfate 2.5 mg 12/31/23 20:09 Albuterol Nebulized 2.5 Mg/3 Ml INHALATION RT-Q4H PRN Shortness Of Breath Amlodipine Besylate 5 mg 01/01/24 09:00 Amlodipine 5 Mg Tab PO DAILY [facility] Budesonide/Formoterol Fumarate 2 puff 01/01/24 08:00 Symbicort 80-4.5 Mcg Inhaler INHALATION RT-BID [facility] Enoxaparin Sodium 40 mg 12/31/23 22:15 12/31/23 23:05 Enoxaparin 40 Mg/0.4 Ml Syringe SQ 40 mg DAILY FLEX Administration Gabapentin 100 mg 12/31/23 21:00 12/31/23 21:04 Gabapentin 100 Mg Cap PO 100 mg BID FLEX Administration Hydroxyzine HCl 50 mg 12/31/23 20:09 Hydroxyzine Hcl 25 Mg Tab PO HS PRN ANXIETY/SLEEP Sodium Chloride 1,000 mls @ 20 mls/hr 01/01/24 08:15 Saline 0.9% IV .Q24H FLEX Ipratropium [place] 0.5 mg 01/01/24 08:00 Ipratropium 0.5 Mg/2.5 Ml Nebu INHALATION RT-QID FLEX Naloxone HCl 0.2 mg 12/31/23 18:39 Naloxone 0.4 Mg/Ml 1 Ml Vial IV Q2M PRN Opioid Reversal Oxycodone/Acetaminophen 1 each 12/31/23 20:09 12/31/23 21:04 Oxycodone-Apap 7.5-325mg 1 Each Tab PO 1 each BID PRN Administration Pain Trazodone HCl 100 mg 12/31/23 21:00 01/01/24 00:05 Trazodone Hcl 100 Mg Tab PO 100 mg HS FLEX Administration Venlafaxine HCl 150 mg 01/01/24 09:00 Venlafaxine Hcl Er 150 Mg Cap PO DAILY FLEX Ziprasidone 20 mg 12/31/23 21:00 12/31/23 21:04 Ziprasidone 20 Mg Cap PO 20 mg BID FLEX Administration Intake and Output 12/31/23 01/01/24 01/01/24 22:59 06:59 14:59 Other: Weight 65.771 kg 12/31/23 16:18 12/31/23 16:18
--- NOTE | 2024-01-01 12:19 | P.EPPROC ---
- EP Procedure Note Electrophysiology Procedure Note: Diagnosis Recurrent palpitations especially when she turns to her side and stands up Presyncope Twelve-lead EKG shows sinus rhythm short PA interval of 180 ms Tilt table test per protocol Baseline blood pressure 129/72 mmHg baseline heart rate 55 beats a minute Patient was tilted upright at an angle of 70 degrees per protocol She complained of lightheadedness upon standing up Thereafter her heart rate and blood pressure remained stable There was no evidence for neurocardiogenic syncope No evidence for dysautonomia Impression Patient complaining of recurrent palpitations and lightheadedness with a short PA interval on twelve-lead EKG Normal heart rate and blood pressure response to upright tilting
[2024-01-01] MEDS ORDERED: diphenhydrAMINE 50 MG/ML 1 ML VIAL ONE (14:11)
[2024-01-01] MEDS ORDERED: PROPOFOL 10 MG/ML 20 ML VIAL IV ONE (14:11)
[2024-01-01] MEDS ORDERED: fentaNYL (PF) 50 MCG/ML 2 ML AMP ONE (14:11)
[2024-01-01] MEDS ORDERED: MIDAZOLAM 2 MG/2 ML VIAL ONE (14:11)
[2024-01-01] MEDS: IV FLUID CONTINUATION 950 ML IV ONE (14:22)
[2024-01-01] MEDS: LACTATED RINGERS 1,000 ML IV ONE (14:22)
[2024-01-01] MEDS: HEPARIN SODIUM,PORCINE 10,000 UNIT in SODIUM CHLORIDE 0.9% 1,000 ML IRRIGATION ONE (14:23)
[2024-01-01] MEDS ORDERED: LIDOCAINE 1% INJ 10MG/ML (20 ML MDV) ONE (14:38)
[2024-01-01] MEDS: LIDOCAINE 1% INJ 10MG/ML (20 ML MDV) SQ ONE (15:00)
[2024-01-01] MEDS: ROPIVACAINE 5MG/ML 20ML VIAL MISCELLANE ONE (15:00)
--- NOTE | 2024-01-01 15:22 | CA ---
Transthoracic Echo Report Name: Shashank Donato Age: 53 Gender: F : 1970 Exam Date: 01/01/2024 12:00 Exam Location: [place] [facility] Ht (in): 59 Wt (lb): 145 Ordering Physician: Pedro Anne MD ([id number]) Attending/Referring Phys: Acupressurist Paola Miner RDCS Procedure CPT: Indications: Chest Pain Cardiac Hx: Technical Quality: Good Contrast 1: Total Dose (mL): Contrast 2: Total Dose (mL): MEASUREMENTS (Male / Female) Normal Values 2D ECHO LV Diastolic Diameter PLAX 3.9 cm 4.2 - 5.9 / 3.9 - 5.3 cm LV Systolic Diameter PLAX 2.7 cm IVS Diastolic Thickness 0.8 cm 0.6 - 1.0 / 0.6 - 0.9 cm LVPW Diastolic Thickness 0.8 cm 0.6 - 1.0 / 0.6 - 0.9 cm LV Relative Wall Thickness 0.4 LVOT Diameter 1.9 cm LV Diastolic Volume MOD BP 91.9 cm??? 67 - 155 / 56 - 104 cm??? LV Systolic Volume MOD BP 28.2 cm??? 22 - 58 / 19 - 49 cm??? LV Ejection Fraction MOD BP 69.3 % >= 55 % LV Cardiac Index MOD BP 2086.7 cm???/min???m??? LV Diastolic Volume MOD 4C 87.2 cm??? LV Systolic Volume MOD 4C 25.9 cm??? LV Ejection Fraction MOD 4C 70.3 % LV Cardiac Index MOD 4C 2007.6 cm???/min???m??? LV Diastolic Length 4C 7.3 cm LV Systolic Length 4C 6.1 cm LV Diastolic Volume MOD 2C 93.5 cm??? LV Systolic Volume MOD 2C 30.1 cm??? LV Ejection Fraction MOD 2C 67.8 % LV Cardiac Index MOD 2C 2076.3 cm???/min???m??? LV Diastolic Length 2C 7.6 cm LV Systolic Length 2C 5.9 cm LA Volume 37.9 cm??? 18 - 58 / 22 - 52 cm??? LA Volume Index 22.6 cm???/m??? 16 - 28 cm???/m??? Ascending Aorta Diameter 3.4 cm DOPPLER AV Peak Velocity 152.1 cm/s AV Peak Gradient 9.3 mmHg AV Mean Velocity 91.4 cm/s AV Mean Gradient 3.9 mmHg AV Velocity Time Integral 29.4 cm LVOT Peak Velocity 113.7 cm/s LVOT Peak Gradient 5.2 mmHg LVOT Velocity Time Integral 25.1 cm LVOT Stroke Volume 67.5 cm??? LVOT Stroke Volume Index 42.0 ml/m??? LVOT Cardiac Index 2212.0 cm???/min???m??? AV Area Cont Eq vti 2.3 cm??? AV Area Cont Eq pk 2.0 cm??? MV Area PHT 3.1 cm??? Mitral E Point Velocity 75.4 cm/s Mitral A Point Velocity 79.7 cm/s Mitral E to A Ratio 0.9 MV Deceleration Time 247.9 ms TR Peak Velocity 233.2 cm/s TR Peak Gradient 21.7 mmHg Right Atrial Pressure 5.0 mmHg Pulmonary Artery Systolic Pressu 26.7 mmHg Right Ventricular Systolic Press 26.7 mmHg PV Peak Velocity 92.4 cm/s PV Peak Gradient 3.4 mmHg FINDINGS Left Ventricle Left ventricular ejection fraction is estimated at 60-65 %. Left ventricular cavity size normal. Left ventricular wall thickness normal. No obvious regional wall motion abnormalities. Right Ventricle Normal right ventricular size and function. Right ventricular systolic pressure within normal limits. Right Atrium Normal right atrial size. Left Atrium Normal left atrial size. Mitral Valve Structurally normal mitral valve. No evidence for mitral valve prolapse. No mitral stenosis. Trace mitral regurgitation. Aortic Valve No aortic valve stenosis or regurgitation. No aortic valve stenosis or regurgitation. Tricuspid Valve Structurally normal tricuspid valve. No tricuspid stenosis. Trace to mild tricuspid regurgitation. Pulmonic Valve Structurally normal pulmonic valve. No pulmonic stenosis. No pulmonic regurgitation. Pericardium No pericardial effusion. Aorta Normal size aortic root and proximal ascending aorta. CONCLUSIONS Diagnosis Recurrent palpitations, abnormal EKG, short TX interval, chest pain Normal LV size and systolic function ejection fraction greater than 60% No wall motion abnormalities Normal left ventricular septal contraction Normal RV size and function Previewed by: Dr. Pedro Anne MD (Electronically Signed) Final Date: 01 January 2024 15:21
[2024-01-01 15:35] LABS: BUN/Creat Ratio 11.18 Ratio (12.00-20.00); Blood Urea Nitrogen 12.3 mg/dL (9.0-27.0); Calcium 9.5 mg/dL (8.7-10.3); Chloride 106 mmol/L (96-109); Glucose 88 mg/dL (70-110); Potassium 4.9 mmol/L (3.5-5.5); Sodium 140 mmol/L (135-145)
[2024-01-01] MEDS ORDERED: ADENOSINE 3 MG/ML 4 ML VIAL ONE (16:02)
[2024-01-01] MEDS: ADENOSINE 3 MG/ML 4 ML VIAL IV ONE (16:40)
[2024-01-01] MEDS: SODIUM CHLORIDE 0.9% 1,000 ML IV SCH ×2 (16:40→16:47)
[2024-01-01] MEDS ORDERED: ACETAMINOPHEN TAB 325 MG TAB PO PRN (17:35)
[2024-01-01] MEDS: HEPARIN SODIUM (1,000 UNIT/ML) 1,000 UNIT in SODIUM CHLORIDE 0.9% 1,000 ML IRRIGATION ONE (17:57)
[2024-01-01] MEDS: ACETAMINOPHEN IV (For NPO) 1,000 MG in EMPTY BAG 1 BAG IVPB ONE (18:04)
[2024-01-01] MEDS: METOPROLOL SUCCINATE (ER) 50 MG TAB.ER.24H PO SCH (18:15)
--- NOTE | 2024-01-01 20:12 | P.PN ---
Progress Note - Text Progress Note Date: 01/01/24 Chief Complaint: Chest pain This is a pleasant 53-year-old patient with chronic stable medical conditions include COPD, hypertension, osteoarthritis, chronic kidney disease stage II having donated left kidney. Patient also with diagnosis of borderline personality disorder. She had contrary to see her counselor at [facility]. Current episode left face was tingling to localize chest discomfort and left arm. Short of breath. Had a few episodes. Patient does get these episodes and felt to be anxiety episodes. Today decided to come in. Patient had a stress to [address] 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 Patient stopped smoking 6 months ago. Does vaping. Takes marijuana for anxiety and pain in her knees. December 31: Patient seen this afternoon. Underwent a tilt table test with Dr. Ryan Anne. That was negative. Patient get these episodes of flutter sensation. Patient also get a event monitor. Active Medications Acetaminophen (Acetaminophen Tab 325 Mg Tab) 650 mg PO Q6HR PRN PRN Reason: Mild Pain (Scale 1 to 3) Acetaminophen/Butalbital/Caffeine (Butalb/Apap/Caff 50-325-40mg Tab) 1 each PO BID PRN PRN Reason: Migraine Headache Albuterol Sulfate (Albuterol Nebulized 2.5 Mg/3 Ml) 2.5 mg INHALATION RT-Q4H PRN PRN Reason: Shortness Of Breath Amlodipine Besylate (Amlodipine 5 Mg Tab) 5 mg PO DAILY [facility] Last Admin: 01/01/24 09:20 Dose: 5 mg Budesonide/Formoterol Fumarate (Symbicort 80-4.5 Mcg Inhaler) 2 puff INHALATION RT-BID [facility] Last Admin: 01/01/24 18:50 Dose: 2 puff Enoxaparin Sodium (Enoxaparin 40 Mg/0.4 Ml Syringe) 40 mg SQ DAILY [facility] Last Admin: 01/01/24 11:03 Dose: 40 mg Gabapentin (Gabapentin 100 Mg Cap) 100 mg PO BID [facility] Last Admin: 01/01/24 11:02 Dose: 100 mg Hydroxyzine HCl (Hydroxyzine Hcl 25 Mg Tab) 50 mg PO HS PRN PRN Reason: ANXIETY/SLEEP Sodium Chloride (Saline 0.9%) 1,000 mls @ 20 mls/hr IV .Q24H [facility] Last Admin: 01/01/24 16:40 Dose: Not Given Sodium Chloride (Saline 0.9%) 1,000 mls @ 20 mls/hr IV .Q24H [facility] Last Admin: 01/01/24 16:47 Dose: Not Given Ipratropium Burns (Ipratropium 0.5 Mg/2.5 Ml Nebu) 0.5 mg INHALATION RT-QID [facility] Last Admin: 01/01/24 18:48 Dose: 0.5 mg Metoprolol Succinate (Metoprolol Succinate (Er) 50 Mg Tab.Er.24h) 50 mg PO D AILY [facility] Last Admin: 01/01/24 18:15 Dose: 50 mg Naloxone HCl (Naloxone 0.4 Mg/Ml 1 Ml Vial) 0.2 mg IV Q2M PRN PRN Reason: Opioid Reversal Oxycodone/Acetaminophen (Oxycodone-Apap 7.5-325mg 1 Each Tab) 1 each PO BID PRN PRN Reason: Pain Last Admin: 01/01/24 11:02 Dose: 1 each Sodium Chloride (Sodium Chloride 0.9% Flush 10 Ml Syringe) 12 ml IV Q12HR PRN PRN Reason: Line Flush Trazodone HCl (Trazodone Hcl 100 Mg Tab) 100 mg PO HS [facility] Last Admin: 01/01/24 00:05 Dose: 100 mg Venlafaxine HCl (Venlafaxine Hcl Er 150 Mg Cap) 150 mg PO DAILY [facility] Last Admin: 01/01/24 11:02 Dose: 150 mg Ziprasidone (Ziprasidone 20 Mg Cap) 20 mg PO BID [facility] Last Admin: 01/01/24 11:02 Dose: 20 mg Social history: Does marijuana to 3 joints a day. For anxiety and knee pain. Smoked half a pack a day for about 16 years. Stopped 6 months ago. Son lives with her. Physical examination: VITAL SIGNS: 81, 16, 114/79, 97% room air GENERAL: Comfortable EYES: Pupils equal. Conjunctiva gisel l. HEENT: External appearance of nose and ears normal, oral cavity grossly normal. NECK: JVD not raised; masses not palpable. HEART: First and second heart sounds are normal; no edema. LUNGS: Respiratory rate normal; decreased breath sounds. ABDOMEN: Soft, nontender, liver spleen not palpable, no masses palpable. PSYCH: [Alert and oriented x3; mood and affect anxious l. MUSCULOSKELETAL:No Clubbing/cyanosis;muscles-grossly intact INVESTIGATIONS, reviewed in the clinical context: 2D echo: EF 60 to 65%. Tilt table test [Dr. Pedro Anne] negative December 31: White count 5.2 hemoglobin 14.7 potassium 4.9 creatinine 1.1 December 30: White count 7.9 hemoglobin 15 platelets 306 sodium 139 potassium 4.5 BUN 13 creatinine 1.11 Troponin I less than 0.012 x 2 Assessment plan: -Anterior chest wall pain. Some atypical features. Risk factors include smoking. Hypertension. Chronic kidney disease 2D echocardiogram unremarkable Tilt table test unremarkable -Recurrent palpitations with sensation of flutters. Short CT interval less than 120 ms. With no obvious delta waves. Tilt table test negative. Event monitor Toprol-XL 50 mg a day -Chronic kidney disease stage II. Patient donated left kidney -COPD in a previous smoker Trilogy Ellipta -Essential hypertension Amlodipine 5 mg a day -Borderline personality disorder. Anxiety. Geodon 20 mg twice daily. Effexor XR 150 mg a day -Chronic insomnia Trazodone 100 mg nightly Toprol-XL 50 mg a day added. Negative tilt table test. 2D echo unremarkable. Follow with cardiology. 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 Past Psychological History: No Psychological Hx Reported Smoking Status: Current every day smoker Past Alcohol Use History: None Reported Past Drug Use History: Marijuana
[2024-01-02 02:36] VITALS: TEMP 98.4
[2024-01-02 07:58] VITALS: BP 102/67; RESP 15
--- NOTE | 2024-01-02 12:24 | P.PN ---
Progress Note - Text Patient is doing well. No chest discomfort dizziness or lightheadedness Her groins of healed well with very mild tenderness bilaterally Heart sounds are normal Breath sounds are clear Impression Recurrent palpitations associated with presyncope and 1 episode of syncope in the past Normal tilt table test Short MD interval of less than 120 ms but without evidence for any accessory pathway conduction including unusual accessory pathways such as atrio-Hisian pathway On Isopril and with double extrastimuli from the atria including HRA and CS, an atrial tachycardia was repeatedly induced However this atrial tachycardia would not last long, was difficult to induce reproducibly and would terminate quickly making mapping very difficult However the right atrium was mapped and the earliest activation was a broad activation in the septum consistent with left atrial tachycardia Transseptal catheterization and left atrial mapping was not performed because of the inconsistency with which the induction occurred Left atrial tachycardia Hypertension Plan Continue amlodipine at night Start metoprolol succinate 25 mg in the morning Treat this left atrial tachycardia medically for now with beta-blockers. Once she starts experiencing breakthrough episodes on beta-blockers then repeat EP study should be performed I will see her again as an outpatient in 1 to 2 weeks
[2024-01-02 17:07] VITALS: PULSE 72
--- NOTE | 2024-01-03 14:03 | P.DS ---
Providers Date of admission: 12/31/23 18:39 Expected date of discharge: 01/02/24 Attending physician: David Suazo Consults: 12/31/23 18:39 Consult Physician Urgent Consulting Provider: [facility] Consult Reason/Comments: acute chest pain, abn ekg Do you want consulting provider notified?: Already Contacted Primary care physician: Cinthia Baum Hospital Course: Final diagnosis -Anterior chest wall pain. Some atypical features.. Rule out ACS. Tilt table test is negative -Recurrent palpitations with sensation of flutters. -Chronic kidney disease stage II. Patient donated left kidney -COPD in a previous smoker, not in exacerbation -Essential hypertension -Borderline personality disorder. Anxiety. -Chronic insomnia -GI prophylaxis -DVT prophylaxis -Full code Discharge disposition Patient is being discharged in a stable condition with guarded prognosis to home. Patient will follow-up with Dr. Baum in the outpatient setting upon discharge. Patient is to continue with current medications and outpatient follow-up with cardiology as scheduled. Total time taken is greater than 35 minutes. Hospital course This is a 53-year-old fe chest wall pain male who was recently admitted and flutters his palpitations being closely monitored. Patient evaluated and underwent tilt table test which was negative and adjustments to medications being done recommending outpatient follow-up with cardiology. Patient reports to feeling much improved and would like to go home. Please refer to cardiology note for further HPI. Currently no reports of chest pain, shortness of breath, or palpitations. Patient is afebrile. No reports of nausea or vomiting and patient is tolerating diet. Patient will be discharged home today. Guarded prognosis and high risk for readmissions given patient's significant comorbidities Physical exam: Gen: This is a 54-year-old female who is awake alert oriented x 3, well- developed, well-nourished HEENT: Head is atraumatic, normocephalic. Pupils equal, round. Sclerae is anicteric. NECK: Supple. No JVD. No lymphadenopathy. No thyromegaly. LUNGS: Diminished breath sounds bilaterally otherwise clear to auscultation. No wheezes or rhonchi. No intercostal retractions. HEART: S1, S2 are muffled ABDOMEN: Soft. Bowel sounds are present. No masses. No tenderness. EXTREMITIES: No pedal edema. No calf tenderness. NEUROLOGICAL: Patient is awake, alert and oriented x3. Cranial nerves 2 through 12 are grossly intact. Please refer to medication reconciliation sheet for a list of medications. The impression and plan of care has been dictated by Vane Giron, Nurse Practitioner as directed. Dr. Mckenna MD I have performed a history and examination and MDM of this patient, discussed the same with the dictator, and agree with the dictator's assessment and plan as written ,documented as a scribe. Based on total visit time, I have performed more than 50% of the visit. Patient Condition at Discharge: Stable Plan - Discharge Summary Discharge Rx Participant: Yes New Discharge Prescriptions: New Acetaminophen Tab [Tylenol] 650 mg PO Q6HR PRN tab PRN Reason: Mild Pain (Scale 1 To 3) Metoprolol Succinate [Metoprolol Succinate ER] 25 mg PO DAILY #90 tab Continue Venlafaxine HCl [Effexor XR] 150 mg PO DAILY amLODIPine [Norvasc] 5 mg PO DAILY Albuterol Sulfate [Ventolin HFA] 2 puff INHALATION RT-Q4H PRN PRN Reason: Shortness Of Breath Fluticasone/Umeclidin/Vilanter [Trelegy Ellipta 100-62.5-25] 1 puff INHALATION RT-DAILY traZODone HCL [Desyrel] 100 mg PO HS Butalb/Acetaminophen/Caffeine [Esgic 50-325-40 mg Tablet] 1 tab PO BID PRN PRN Reason: Migraine Headache Ziprasidone [Geodon] 20 mg PO BID Gabapentin [Neurontin] 100 mg PO BID oxyCODONE-APAP 7.5-325MG [Percocet 7.5-325 mg] 1 tab PO BID PRN PRN Reason: Pain Ergocalciferol (Vitamin D2) [Drisdol (50,000 Iu)] 1,250 mcg PO SA hydrOXYzine HCL [Atarax] 50 - 100 mg PO HS PRN PRN Reason: ANXIETY/SLEEP Discharge Medication List Albuterol Sulfate [Ventolin HFA] 2 puff INHALATION RT-Q4H PRN 12/24/19 [History] Venlafaxine HCl [Effexor XR] 150 mg PO DAILY 12/24/19 [History] amLODIPine [Norvasc] 5 mg PO DAILY 12/24/19 [History] Butalb/Acetaminophen/Caffeine [Esgic 50-325-40 mg Tablet] 1 tab PO BID PRN 12/31/23 [History] Ergocalciferol (Vitamin D2) [Drisdol (50,000 Iu)] 1,250 mcg PO SA 12/31/23 [History] Fluticasone/Umeclidin/Vilanter [Trelegy Ellipta 100-62.5-25] 1 puff INHALATION RT-DAILY 12/31/23 [History] Gabapentin [Neurontin] 100 mg PO BID 12/31/23 [History] Ziprasidone [Geodon] 20 mg PO BID 12/31/23 [History] hydrOXYzine HCL [Atarax] 50 - 100 mg PO HS PRN 12/31/23 [History] oxyCODONE-APAP 7.5-325MG [Percocet 7.5-325 mg] 1 tab PO BID PRN 12/31/23 [History] traZODone HCL [Desyrel] 100 mg PO HS 12/31/23 [History] Acetaminophen Tab [Tylenol] 650 mg PO Q6HR PRN tab 01/02/24 [Rx] Metoprolol Succinate [Metoprolol Succinate ER] 25 mg PO DAILY #90 tab 01/02/24 [Rx] Follow up Appointment(s)/Referral(s): Cinthia Baum DO [Primary Care Provider] - 1-2 days David Reinoso MD [STAFF PHYSICIAN] - 02/17/24 4:15 pm Patient Instructions/Handouts: Chest Pain (DC) Activity/Diet/Wound Care/Special Instructions: Post EP study - Ablation instructions 1. Keep access sites dry for 2 days. 2. No heavy lifting or straining for 2 days. 3. Avoid bending the hips repeatedly for 2 days. 4. You may go up and down stairs slowly Call if the following is noted 1. Bleeding, increasing swelling or pain at the access sites. 2. Increasing chest discomfort, especially upon taking a deep breath. 3. Increasing shortness of breath, at rest or with exertion. 4. Undue cough / phlegm 5. Difficulty or pain while swallowing. 6. Pain or change in color in the extremities. 7. Fever, chills, rigors. 8. Increasing headache or neurologic symptoms. 9. Dizziness, fainting, palpitations New medication Metoprolol succinate 25 mg in the morning Take amlodipine in the evening Discharge Disposition: HOME SELF-CARE
== END 2024-01-02 15:21 | disposition home or self-care (01) ==
LOC: EC 15:30 → 6NMEDSUR 18:39
PROVIDERS: ADMIT Hospitalist; ATTEND Hospitalist
DX: R07.89 Other chest pain (principal); R00.2 Palpitations; R55 Syncope and collapse; I12.9 Hypertensive chronic kidney disease with stage 1 through stage 4 chronic kidney disease, or unspecified chronic kidney disease; N18.2 Chronic kidney disease, stage 2 (mild); J44.9 Chronic obstructive pulmonary disease, unspecified; Z87.891 Personal history of nicotine dependence; F60.3 Borderline personality disorder; F51.04 Psychophysiologic insomnia; Z82.49 Family history of ischemic heart disease and other diseases of the circulatory system; F41.9 Anxiety disorder, unspecified; I25.2 Old myocardial infarction; I45.9 Conduction disorder, unspecified; I47.19 Other supraventricular tachycardia; M19.90 Unspecified osteoarthritis, unspecified site; Z79.51 Long term (current) use of inhaled steroids; Z79.899 Other long term (current) drug therapy; Z82.5 Family history of asthma and other chronic lower respiratory diseases; Z85.41 Personal history of malignant neoplasm of cervix uteri; Z90.710 Acquired absence of both cervix and uterus
CPT/HCPCS: 36415; 94640 ×4; 93005; 93306; 93270; 80053; 80048; 83690; 83735; 84484 ×2; 85025 ×2; 85610; 85730; 71046; G0378 ×3; C1894; C1769 ×2; C1760; C1730 ×3; C1731; J1644 ×2; J2001; J1650 ×3; J0153; J2795; 93620; 93621; 93623; 93660; 96365; 96366; 96372; 96376; 99285